=== PATIENT | male | born 1945 | race Caucasian/White ===

== ENCOUNTER → 2017-11-09 | Outpatient (CLI) | payer MEDICARE ==
[2017-11-09 18:11] LABS: Basophils % (A) 0 %; Eosinophils # (A) 0.2 k/uL (0-0.7); Eosinophils % (A) 5 %; HCT 43.9 % (39.0-53.0); HGB 14.4 gm/dL (13.0-17.5); Lymphocytes # (A) 1.1 k/uL (1.0-4.8); Lymphocytes % (A) 21 %; MCHC 32.8 g/dL (31.0-37.0); MCV 94.7 fL (80.0-100.0); Mean Platelet Volume 7.9; Monocytes # (A) 0.3 k/uL (0-1.0); Monocytes % (A) 6 %; Neutrophils # (A) 3.6 k/uL (1.3-7.7); Neutrophils % (A) 66 %; Platelet Count 274 k/uL (150-450); RBC 4.64 m/uL (4.30-5.90); RDW 13.2 % (11.5-15.5); WBC 5.4 k/uL (3.8-10.6)
[2017-11-09 18:15] LABS: ALT 25 U/L (21-72); AST 27 U/L (17-59); Albumin 4.2 g/dL (3.5-5.0); Alkaline Phosphatase 96 U/L (38-126); Anion Gap 12 mmol/L; Blood Urea Nitrogen 12 mg/dL (9-20); Carbon Dioxide 26 mmol/L (22-30); Chloride 104 mmol/L (98-107); Cholesterol 231 mg/dL (<200); Glucose 95 mg/dL (74-99); HDL Cholesterol 58 mg/dL (40-60); LDL Cholesterol,Calculated 155 mg/dL (0-99); Potassium 4.8 mmol/L (3.5-5.1); Sodium 142 mmol/L (137-145); Total Bilirubin 0.5 mg/dL (0.2-1.3); Total Protein 7.4 g/dL (6.3-8.2); Triglycerides 89 mg/dL (<150)
[2017-11-09 18:31] LABS: T4, Free (Free Thyroxine) 1.11 ng/dL (0.78-2.19)
[2017-11-09 18:45] LABS: Prostate Specific Antigen 1.09 ng/mL (0.00-4.00)
[2017-11-10 02:33] LABS: Hemoglobin A1C 5.6 % (4.0-6.0)
== END | disposition home or self-care (01) ==
LOC: LABWHC1 17:49
PROVIDERS: ATTEND Internal Medicine Geriatric Medicine
DX: Z00.00 Encounter for general adult medical examination without abnormal findings (principal); E78.00 Pure hypercholesterolemia, unspecified; E55.9 Vitamin D deficiency, unspecified; M15.9 Polyosteoarthritis, unspecified; R79.9 Abnormal finding of blood chemistry, unspecified; N40.0 Benign prostatic hyperplasia without lower urinary tract symptoms
CPT/HCPCS: 36415; 80053; 80061; 82306; 83036; 84153; 84439; 84443; 85025

== ENCOUNTER → 2018-11-14 | Outpatient (CLI) | payer MEDICARE ==
[2018-11-14 10:29] LABS: Basophils % (A) 1 %; Eosinophils # (A) 0.3 k/uL (0-0.7); Eosinophils % (A) 6 %; HGB 14.8 gm/dL (13.0-17.5); Lymphocytes # (A) 0.9 k/uL (1.0-4.8); Lymphocytes % (A) 21 %; MCH 30.9 pg (25.0-35.0); MCHC 32.9 g/dL (31.0-37.0); Mean Platelet Volume 8.3; Monocytes # (A) 0.3 k/uL (0-1.0); Monocytes % (A) 7 %; Neutrophils # (A) 2.9 k/uL (1.3-7.7); Neutrophils % (A) 64 %; Platelet Count 227 k/uL (150-450); RBC 4.79 m/uL (4.30-5.90); RDW 14.2 % (11.5-15.5); WBC 4.5 k/uL (3.8-10.6)
[2018-11-14 15:50] LABS: African American GFR (CKD) 98.5 (60.0-200.0); Albumin/Globulin Ratio 1.67 (1.60-3.17); Anion Gap 7.3 mmol/L (4.00-12.00); BUN/Creat Ratio 14.44 Ratio (12.00-20.00); Calcium 9.3 mg/dL (8.7-10.3); Carbon Dioxide 24.7 mmol/L (21.6-31.8); Globulin 2.4 g/dL (1.6-3.3); LDL Cholesterol,Calculated 124.8 mg/dL (0.0-131.0); Total Bilirubin 0.6 mg/dL (0.3-1.2); Total Protein 6.4 g/dL (6.2-8.2); VLDL Calculation 15.2 mg/dL (5.00-40.00)
== END | disposition home or self-care (01) ==
LOC: LABWHC1 11-07 09:13
PROVIDERS: ATTEND Internal Medicine Geriatric Medicine
DX: E78.2 Mixed hyperlipidemia (principal); N40.0 Benign prostatic hyperplasia without lower urinary tract symptoms; R79.9 Abnormal finding of blood chemistry, unspecified
CPT/HCPCS: 36415; 80053; 80061; 83036; 84153; 84439; 84443; 85025

== ENCOUNTER → 2021-09-08 | Outpatient (CLI) | payer MEDICARE ==
--- NOTE | 2021-09-08 15:03 | US ---
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 EXAM MEASUREMENTS: RIGHT: Peak Systolic Velocity (PSV) cm/sec ----- Right CCA: 105.7 ----- Right ICA: 105.7 ----- Right ECA: 99.6 ICA/CCA ratio: 1.0 RIGHT: End Diastole cm/sec ----- Right CCA: 22.8 ----- Right ICA: 38.3 ----- Right ECA: 13.9 LEFT: Peak Systolic Velocity (PSV) cm/sec ----- Left CCA: 94.1 ----- Left ICA: 123.4 ----- Left ECA: 90.2 ICA/CCA ratio: 1.3 LEFT: End Diastole cm/sec ----- Left CCA: 20.2 ----- Left ICA: 40.6 ----- Left ECA: 11.1 VERTEBRALS (direction of flow): Right Vertebral: Antegrade Left Vertebral: Antegrade Rhythm: Normal Very small amount of atherosclerotic changes. left ICA tortous IMPRESSION: No evidence for hemodynamically significant stenosis. Criteria for Assigning % of Stenosis / Diameter reduction (Estimation based on the indirect measurements of the internal carotid artery velocities (ICA PSV). 1. Normal (no stenosis)=ICA PSV < 125 cm/s: ratio < 2.0: ICA EDV<40 cm/s. 2. Less than 50% stenosis=ICA PSV < 125 cm/s: ratio < 2.0: ICA EDV<40 cm/s. 3. 50 to 69% stenosis=ICA PSV of 125 to 230 cm/s: ration 2.0 ? 4.0: ICA EDV 40-100 cm/s. 4. Greater than 70% stenosis to near occlusion= ICA PSV > 230 cm/s: ratio > 4.0: ICA EDV > 100 cm/s. 5. Near occlusion= ICA PSV velocities may be low or undetectable: variable ratio and ICA EDV. 6. Total occlusion=unable to detect flow.
--- NOTE | 2021-09-09 06:59 | CA ---
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 18 - 58 / 22 - 52 cm??? M-MODE Aortic Root Diameter MM 3.7 cm MV E Point Septal Separation 0.8 cm AV Cusp Separation MM 2.4 cm DOPPLER AV Peak Velocity 127.5 cm/s AV Peak Gradient 6.5 mmHg MV Area PHT 2.9 cm??? Mitral E Point Velocity 56.2 cm/s Mitral A Point Velocity 64.2 cm/s Mitral E to A Ratio 0.9 MV Deceleration Time 258.8 ms TR Peak Velocity 221.7 cm/s TR Peak Gradient 19.7 mmHg Right Ventricular Systolic Press 24.2 mmHg FINDINGS Left Ventricle Left ventricular ejection fraction is estimated at 60-65%. Normal Left ventricular size, wall thickness, systolic function with no obvious regional wall motion abnormalities. Right Ventricle Normal right ventricular size and function. Right ventricular systolic pressure within normal limits. Right Atrium Normal right atrial size. Left Atrium Normal left atrial size. Mitral Valve Structurally normal mitral valve. No mitral stenosis, regurgitation or prolapse. Aortic Valve Trileaflet aortic valve. No aortic valve stenosis or regurgitation. Tricuspid Valve Mild tricuspid regurgitation. Pulmonic Valve Trace pulmonic regurgitation. Pericardium Normal pericardium. Aorta Normal size aortic root and proximal ascending aorta. CONCLUSIONS Preserved LV size and systolic function without wall motion Previewed by: Dr. Chang Blanca MD (Electronically Signed) Final Date: 09 Sep 2021 06:58
== END | disposition home or self-care (01) ==
LOC: RADECHMAIN 13:36
PROVIDERS: ATTEND Internal Medicine Geriatric Medicine
DX: I65.23 Occlusion and stenosis of bilateral carotid arteries (principal); I34.0 Nonrheumatic mitral (valve) insufficiency
CPT/HCPCS: 93306; 93880

== ENCOUNTER → 2021-09-10 | Outpatient (CLI) | payer MEDICARE ==
--- NOTE | 2021-09-10 16:49 | MR ---
EXAMINATION TYPE: MR brain wo/w con DATE OF EXAM: 09/10/2021 COMPARISON: NONE HISTORY: AMNESIA. Memory loss. TECHNIQUE: Multiplanar, multisequence images of the brain and brainstem is performed without and with IV contras t, utilizing 9 mL intravenous Gadavist . FINDINGS: Diffusion weighted images demonstrate no evidence of a recent infarct or other diffusion ab normality. Mild to moderate ventricular and sulcal prominence greatest over the superior bilateral fr ontal lobes. No significant white matter changes are identified. Midline structures demonstrate normal morphology. The craniocervical junction appears within normal limits. Post contrast images demonstrate no abnormal enhancement. Moderate mucosal thickening involv ing ethmoid sinuses bilaterally. Mild mucosal thickening involving the inferior maxillary sinuses. Mi ld mucosal thickening involving right frontal sinus. The globes are intact bilaterally. IMPRESSION: 1. Mild to moderate diffuse cerebral atrophy greatest over the bilateral frontal lobes superiorly. 2. Chronic paranasal sinus disease noted as detailed above.
== END | disposition home or self-care (01) ==
LOC: RADMRIMAIN 12:27
PROVIDERS: ATTEND Internal Medicine Geriatric Medicine
DX: G31.9 Degenerative disease of nervous system, unspecified (principal); J34.89 Other specified disorders of nose and nasal sinuses
CPT/HCPCS: 70553; A9585

== ENCOUNTER → 2022-07-31 | Outpatient (CLI) | payer MEDICARE ==
[2022-07-31 15:25] LABS: Partial Thromboplastin Time 24.1 sec (22.0-30.0); Prothrombin Time 10.2 sec (9.0-12.0)
[2022-07-31 18:50] LABS: HCT 46.4 % (39.6-50.0); HGB 14.8 g/dL (13.0-17.0); MCH 31.4 pg (27.0-32.0); MCHC 31.9 g/dL (32.0-37.0); MCV 98.5 fL (80.0-97.0); Mean Platelet Volume 11.3 fL (9.5-12.2); NRBC Per 100 WBC 0 /100 WBCS (0.0-0.0); Platelet Count 249 X 10*3/uL (140-440); RBC 4.71 X 10*6/uL (4.40-5.60); RDW 12.9 % (11.5-14.5); WBC 6.21 X 10*3/uL (4.50-10.00)
[2022-07-31 19:24] LABS: African American GFR (CKD) 100.6 (60.0-200.0); Albumin 4.3 g/dL (3.8-4.9); Albumin/Globulin Ratio 1.48 (1.60-3.17); Anion Gap 9.6 mmol/L (10.00-18.00); Blood Urea Nitrogen 10.4 mg/dL (9.0-27.0); Calcium 9.7 mg/dL (8.7-10.3); Carbon Dioxide 28.4 mmol/L (20.0-27.5); Globulin 2.9 g/dL (1.6-3.3); Non-African American GFR(CKD) 86.8 (60.0-200.0); Potassium 4.3 mmol/L (3.5-5.5); Total Bilirubin 0.7 mg/dL (0.30-1.20); Total Protein 7.2 g/dL (6.2-8.2)
[2022-08-01 00:07] LABS: Appearance,Urine Clear (Clear); Bilirubin,Urine Negative (Negative); Blood,Urine Negative (Negative); Color,Urine Yellow (Yellow); Ketones,Urine Negative (Negative); Nitrite,Urine Negative (Negative); Specific Gravity,Urine 1.008 (1.001-1.030); Urobilinogen,Urine 0.2 (0.2,1.0)
== END | disposition home or self-care (01) ==
LOC: LABWHC1 12:44
PROVIDERS: ATTEND Orthopaedic Surgery
DX: Z01.812 Encounter for preprocedural laboratory examination (principal); M17.11 Unilateral primary osteoarthritis, right knee
CPT/HCPCS: 80053; 81003; 85027; 85610; 85730; 87070; 93005

== ENCOUNTER → 2022-08-06 | Outpatient (CLI) | payer MEDICARE ==
--- NOTE | 2022-08-06 14:04 | CT ---
EXAMINATION TYPE: CT right knee - [facility] Protocol DATE OF EXAM: 08/06/2022 COMPARISON: pain HISTORY: RT knee pain and arthritis CT DLP: 574 mGycm TECHNIQUE- CT of the right knee LOULOU protocol. COMPARISON- pain FINDINGS- There is significant joint space narrowing in the hips bilaterally along superior compartments. Small spurs are seen along the inferior margin of the left femoral head. No erosive changes. There is thickening of the bladder wall enlargement of prostate. Correlate for cystitis. Mucosal lesi on not excluded. There is a small suprapatellar bursal fluid collection. There is severe osteoarthritis of the knee wi th hypertrophic spurring and complete loss of joint space along the medial compartment. Arthropathy o f the patellofemoral joint also noted. A small popliteal fossa cyst not excluded. IMPRESSION- 1. Severe osteoarthritis of the right knee 2. Bilateral hip arthropathy.
== END | disposition home or self-care (01) ==
LOC: RADCTMAIN 10:40
PROVIDERS: ATTEND Orthopaedic Surgery
DX: M17.11 Unilateral primary osteoarthritis, right knee (principal); M21.161 Varus deformity, not elsewhere classified, right knee; M16.0 Bilateral primary osteoarthritis of hip

== ENCOUNTER 2022-08-21 05:33 | Day surgery (SDC) | payer MEDICARE ==
[2022-08-18 08:32] VITALS: BMI 23.1
[2022-08-21] MEDS ORDERED: LACTATED RINGERS 1,000 ML IV SCH (05:36)
[2022-08-21] MEDS ORDERED: ONDANSETRON 4 MG/2 ML VIAL IVP ONE (05:36)
[2022-08-21] MEDS ORDERED: HYDROmorphone 0.5 MG/0.5 ML SYRINGE IVP PRN ×4 (05:36→09:47)
[2022-08-21] MEDS ORDERED: DEXAMETHASONE SOD PHOSPHATE 4 MG/ML 1 ML VIAL IV ONE (05:36)
[2022-08-21] MEDS ORDERED: LIDOCAINE 1% (10MG/ML) FOR IV START INTRADERMA PRN (05:36)
[2022-08-21] MEDS ORDERED: MIDAZOLAM 2 MG/2 ML VIAL IV PRN (05:36)
[2022-08-21] MEDS ORDERED: DEXAMETHASONE SOD PHOSPHATE 10 MG/ML 1 ML VIAL IV PRN (06:00)
[2022-08-21] MEDS ORDERED: ACETAMINOPHEN TAB 500 MG TAB PO PRN (06:00)
[2022-08-21] MEDS ORDERED: TRANEXAMIC ACID IN NACL,ISO-OS 1,000 MG in SALINE 1 100ML.BAG IV PRN (06:00)
[2022-08-21] MEDS ORDERED: TRANEXAMIC ACID IN NACL,ISO-OS 1,000 MG in SALINE 1 100ML.BAG IVPB PRN (06:00)
[2022-08-21] MEDS ORDERED: oxyCODONE ER 10 MG TAB.ER.12H PO PRN (06:00)
[2022-08-21] MEDS ORDERED: KETOROLAC 15 MG/ML 1 ML VIAL IVP PRN (06:00)
[2022-08-21] MEDS ORDERED: ONDANSETRON 4 MG/2 ML VIAL IVP PRN ×2 (06:00→09:47)
[2022-08-21] MEDS ORDERED: DOCUSATE 100 MG CAP PO PRN (06:00)
[2022-08-21] MEDS ORDERED: FAMOTIDINE 20 MG/2 ML VIAL IVP PRN (06:00)
[2022-08-21] MEDS ORDERED: fentaNYL (PF) 50 MCG/ML 2 ML AMP IVP ONE (06:47)
[2022-08-21] MEDS ORDERED: MIDAZOLAM 2 MG/2 ML VIAL IVP ONE (06:47)
[2022-08-21] MEDS ORDERED: SODIUM CHLORIDE 0.9% (PF) 10 ML VIAL ONE (07:07)
[2022-08-21] MEDS ORDERED: TRANEXAMIC ACID IN NACL,ISO-OS 1,000 MG/100 ML BAG ONE (07:07)
[2022-08-21] MEDS ORDERED: ROCURONIUM 10 MG/ML (5 ML VIAL) IV ONE (07:07)
[2022-08-21] MEDS ORDERED: LIDOCAINE 2% INJ 20 MG/ML (2 ML VIAL) ONE (07:07)
[2022-08-21] MEDS ORDERED: NEOSTIGMINE 1 MG/ML 10 ML VIAL ONE (07:07)
[2022-08-21] MEDS ORDERED: ePHEDrine 50 MG/ML 1 ML VIAL ONE (07:07)
[2022-08-21] MEDS ORDERED: SUCCINYLCHOLINE CHLORIDE 200 MG/10 ML VIAL IV ONE (07:07)
[2022-08-21] MEDS ORDERED: ROPIVACAINE 5 MG/ML 30 ML VIAL ONE (07:07)
[2022-08-21] MEDS ORDERED: PROPOFOL 10 MG/ML 20 ML VIAL IV ONE (07:07)
[2022-08-21] MEDS ORDERED: HYDROmorphone (PF) 1 MG/ML ONE (07:07)
[2022-08-21] MEDS ORDERED: fentaNYL (PF) 50 MCG/ML 2 ML AMP ONE (07:07)
[2022-08-21] MEDS ORDERED: GLYCOPYRROLATE 0.2 MG/ML 2 ML VIAL ONE (07:07)
--- NOTE | 2022-08-21 07:07 | P.ANPRN ---
Procedure Note - Anesthesia - Nerve Block Performed Right Adductor Canal Single Time Out Performed: Yes (646) Date of Procedure: 08/21/22 Procedure Start Time: 06:47 Procedure Stop Time: 06:51 Location of Patient: PreOp Indication: Acute Post-Operative Pain, Requested by Surgeon Specifically requested for management of pain by DrAlisia: Westley Marquis Sedation Type: Sedate with meaningful contact maintained Preparation: Sterile Prep Position: Supine Catheter: None Needle Types: Pajunk Needle Gauge: 21 Ultrasound used to visualize needle placement: Yes Ultrasound used to observe medication spread: Yes Injectate: 0.5% Ropivacaine (see comment for volume) (15cc +10cc nacl pf) Blood Aspirated: No Pain Paresthesia on Injection Noted: No Resistance on Injection: Normal Image Stored and Saved: Yes Events: Uneventful and Well Tolerated
--- NOTE | 2022-08-21 07:08 | P.ANPRN ---
Procedure Note - Anesthesia - Nerve Block Performed Right iPack Single Time Out Performed: Yes (646) Date of Procedure: 08/21/22 Procedure Start Time: 06:52 Procedure Stop Time: 06:54 Location of Patient: PreOp Indication: Acute Post-Operative Pain, Requested by Surgeon Specifically requested for management of pain by DrAlisia: Westley Marquis Sedation Type: Sedate with meaningful contact maintained Preparation: Sterile Prep Position: Supine Needle Types: Pajunk Needle Gauge: 21 Ultrasound used to visualize needle placement: Yes Ultrasound used to observe medication spread: Yes Injectate: 0.5% Ropivacaine (see comment for volume) (15cc +10cc nacl pf) Blood Aspirated: No Pain Paresthesia on Injection Noted: No Resistance on Injection: Normal Image Stored and Saved: Yes Events: Uneventful and Well Tolerated
[2022-08-21] MEDS: ROPIVACAINE/EPI/CLONIDINE/KET 50 ML SYRINGE MISCELLANE PRN ×2 (07:42→08:49)
[2022-08-21] MEDS ORDERED: LACTATED RINGERS 1,000 ML IV ONE (08:50)
[2022-08-21] MEDS ORDERED: HYDROcodone/APAP 5-325MG 1 EACH TAB PO PRN (09:47)
[2022-08-21] MEDS ORDERED: NALOXONE 0.4 MG/ML 1 ML VIAL IV PRN (09:47)
[2022-08-21] MEDS ORDERED: hydrOXYzine pamoate 25 MG CAP PO PRN (09:47)
--- NOTE | 2022-08-21 09:49 | P.OP ---
Date of Procedure: 08/21/22 Preoperative Diagnosis: 1. Severe right knee osteoarthritis 2. Mild dementia Postoperative Diagnosis: 1. Severe right knee osteoarthritis 2. Mild dementia Procedure(s) Performed: Right total knee arthroplasty Implants: 1. [place] [employer] CR Femur Size #7 2. [employer] [place] Tibial Base Size #7 3. [place] [employer] CS poly Size #9 4. [employer] all poly patella, Size #35 Anesthesia: RAN, regional Surgeon: Westley Marquis Weigher Operator #1: Carlene Hansen Estimated Blood Loss (ml): 100 IV fluids (ml): 1,200 Pathology: none sent Condition: stable Disposition: PACU Indications for Procedure: I met with the patient preoperatively in the office setting and discussed treatment of their symptomatic knee arthritis. They failed a long course of nonsurgical treatment and elected to proceed with an elective total knee replacement. I discussed the potential risks and complications at length and gave them ample time to ask questions. Risks discussed included: risks from anesthesia, superficial site surgical infection, acute and/or chronic periprosthetic joint infection, delayed wound healing, drainage, wound necrosis, instability, stiffness, stiffness requiring manipulation and/or revision surgery, damage to local blood vessels or nerves, aseptic loosening of the implants, extensor mechanism issues including disruption, patellar maltracking, avascular necrosis etc., continued or worsened knee pain, generalized dissatisfaction with surgical outcome, need for revision surgery, an inability to regain preinjury level of function, DVT, PE, other medical complications, and possibly loss of life or limb. The patient voiced their understanding that while these are the most common complications other less common complications are possible. They provided both their verbal and written consent to go forward with surgery. Operative Findings: Severe tricompartmental knee osteoarthritis Description of Procedure: The patient was identified in preoperative holding and the correct operative extremity was verified and marked with a marker. I reviewed the consent form with the patient at length. All of their questions were answered. The patient was given a block by anesthesia. They were then brought back to the operating room. They were transferred onto the operating room table where a general anesthetic, preoperative antibiotics, and tranexamic acid were administered by anesthesia. A tourniquet was applied to the proximal aspect of the operative extremity. The contralateral extremity was padded under the heel and secured to the operating room table with a nonsterile blue towel and tape. The ipsilateral arm was carefully draped across the patient's chest and secured with a pillow and foam. A post was applied over the lateral aspect of the ipsilateral thigh and a bolster was placed under the ipsilateral foot. I verified that the operative extremity was stable and the knee was flexed to 90. The operative extremity was then placed in a leg engel, nonsterile drapes were applied, and the extremity was prepped and draped sterilely in the standard sterile fashion. Prior to starting surgery timeout was performed identifying the correct patient, operative extremity, and procedure. The leg was then elevated, exsanguinated with an Esmarch bandage, and the tourniquet was inflated. An anterior midline incision was made sharply with a scalpel. Once I had dissected deep to the superficial fascial layer medial and lateral flaps were elevated. A medial parapatellar arthrotomy was created. Upon opening the knee joint there were diffuse arthritic changes in all 3 compartments. The anterior horn of the medial meniscus were sharply released and a medial release was performed around the posterior medial corner of the knee to facilitate retractor placement. The fat pad was excised with electrocautery. The patella was found to be severely arthritic and a provisional cut was made with a sagittal saw to facilitate mobilization of the extensor mechanism during the procedure. Remnants of the ACL and PCL were then excised from the notch. 4 mm pins were then placed within the incision in the medial distal femur and proximal tibia. Arrays were applied to the pins and I verified they were completely tightened. The knee was then registered with the REQQI robot and manipulations in implant position were made to balance the knee and opitmize implant position. Using the Tj robotic saw all cuts were made in accordance with our plan. After all bony fragments had been removed the cuts were verified with the planar probe. The tibia was then subluxed forward and sized. The knee was brought into flexion and a lamina information architect was placed to allow removal of the meniscal remnants both medially and laterally as well as posterior osteophytes. Local anesthetic was then infiltrated around the joint capsule. Trial implants were then placed within the knee. Range of motion and collateral ligament tension was then evaluated. Adjustments in implant size and position were then made accordingly. Once the knee was felt to be appropriately balanced the Tj pins were removed. The patella was then recut, sized, and punched. A trial patellar button was then placed. With the trial components in place, the patella tracked midline. The femur was then drilled and the trial component removed. The trial tibial component was then appropriately rotated, pinned, and prepared for the keel. All trial components were then removed from the knee. The knee was thoroughly irrigated with pulsatile lavage. Cement was prepared via vacuum mixing in a bowl on the back table. I then hand pressurized cement into the femur and tibia and placed the implants beginning with the tibial base tray and poly liner, femoral component, and finally the patellar button. All extruded cement was removed including from the pin sites. Once the cement had hardened the knee was evaluated one final time with the final polyethylene liner in place. The knee had full extension and flexion and felt stable to varus and valgus stress throughout the arc of motion. The tourniquet was released and with the tourniquet down the patella tracked midline. All bleeders were controlled with electrocautery. The knee was then soaked for 3 minutes with a dilute Betadine soak. The knee was thoroughly irrigated using 3 L of sterile saline and pulsatile lavage. A deep drain was placed. The extensor mechanism was then reapproximated using pop off Vicryl sutures followed by a running barbed suture. The knee was then closed in layers with a 0 strata fix for the deep fascial layer, 2-0 strata fix for the superficial subcutaneous layer and Monocryl and Steri-Strips for the skin. A sterile dressing and drain sponge were applied. I verified that all instrument, sponge, and sharp counts were correct. The patient was then transferred off the operating room table, extubated, and brought to recovery having tolerated the procedure well. Carlene Hansen PA-C was required as a skilled ortho assistant due to the complexity of the procedure for patient positioning, draping, retraction, placement of hardware, and closure of wound. PLAN: The patient can weight-bear as tolerated on the operative extremity. DVT prophylaxis with aspirin 81 mg twice a day based on preoperative risk stratification. Follow-up in the office in 2 weeks for wound check and x-rays of the knee including an AP and lateral.
--- NOTE | 2022-08-21 10:41 | XR ---
EXAMINATION TYPE: XR knee limited RT DATE OF EXAM: 08/21/2022 10:30 AM INDICATION: Patient age:Male; 77 years old; Reason for study: Evaluation for Postop abnormality and alignment; COMPARISON: None TECHNIQUE: The Right knee(s) was examined in Frontal, lateral and oblique projections. FINDINGS: Status post total knee arthroplasty changes with hardware in appropriate alignment and in tact. No evidence of fracture. Subcutaneous lucencies and lucencies within the joint consistent with surgical changes. IMPRESSION: Status post total knee arthroplasty changes with hardware intact and appropriate alignment. No fractu res identified.
[2022-08-21] MEDS: LACTATED RINGERS 1,000 ML IV SCH ×2 (13:07→21:04)
[2022-08-21] MEDS: HYDROcodone/APAP 5-325MG 1 EACH TAB PO PRN ×2 (17:04→23:52)
[2022-08-21] MEDS ORDERED: SENNOSIDES-DOCUSATE SODIUM 1 EACH TAB PO SCH (21:00)
[2022-08-21] MEDS: ASPIRIN 81 MG PO SCH (21:01)
--- NOTE | 2022-08-21 23:01 | P.CONS ---
History of Present Illness - Reason for Consult Consult date: 08/21/22 Medical management - Chief Complaint Right total knee arthroplasty - History of Present Illness Patient is a 77-year-old male with a known history of hearing disorder/deafness, osteoarthritis and lifelong non-smoker was admitted to the hospital for elective right total knee arthroplasty. Patient tolerated the procedure well. Currently resting in the bed. Denies any complaints of pain at the surgical site. No complaints of chest pain or shortness of breath. No nausea vomiting abdominal pain or diarrhea. Postoperatively blood pressure was 100/51. Patient otherwise denied any complaints of dizziness or lightheadedness. No cough or sputum production. Patient has been afebrile. Laboratory data is not available at this time. Review of Systems Constitutional: Patient denies any fever or chills . no Generalized weakness. Abdomen: Patient denied any nausea or vomiting or abd. pain Cardiovascular: Patient denies any chest pain or short of breath no palpit ations. Respiratory: patient denied any cough . no sputum production. No shortness of breath Neurologic: Patient denied any numbness or tingling headache. Musculoskeletal: Patient denies any complaints of joint swelling or deformity. Complete review of systems could not be obtained from the patient. Past Medical History Past Medical History: Hearing Disorder / Deafness, Memory Impairment, Osteoarthritis (OA) Additional Past Medical History / Comment(s): "Mild cognitive impairment, some trouble hearing at times." History of Any Multi-Drug Resistant Organisms: None Reported Past Surgical History: No Surgical Hx Reported Additional Past Surgical History / Comment(s): Cataract surgery, colonoscopy, right total knee arthroplasty. Past Anesthesia/Blood Transfusion Reactions: No Reported Reaction Past Psychological History: No Psychological Hx Reported Smoking Status: Never smoker Past Alcohol Use History: None Reported Past Drug Use History: None Reported - Past Family History Father Additional Family Medical History / Comment(s): Abdominal Aortic Aneurysym. Medications and Allergies Home Medications Medication Instructions Recorded Confirmed Type Barley Life 1 dose PO DAILY 08/18/22 08/18/22 History Ginkgo Biloba [place] Extract [Ginkgo] 120 mg PO BID 08/18/22 08/18/22 History Mupirocin 2% Oint [Bactroban 2% 1 applic NASAL TID 08/18/22 08/18/22 History Oint] Reassure Sp 1 dose PO DAILY 08/18/22 08/18/22 History Enrique Beets/Just Carrots 1 dose PO DAILY 08/18/22 08/18/22 History Aspirin 81 mg PO BID 30 Days #60 tab 08/21/22 Rx Diclofenac Sodium [Voltaren] 75 mg PO BID 30 Days #60 tab 08/21/22 Rx Docusate [Colace] 100 mg PO BID #60 capsule 08/21/22 Rx HYDROcodone/APAP 5-325MG [[place] 1 - 2 tab PO Q6HR PRN 7 Days #32 08/21/22 Rx 5-325] tab Omeprazole 40 mg PO DAILY 30 Days #30 cap 08/21/22 Rx Allergies Allergy/AdvReac Type Severity Reaction Status Date / Time No Known Allergies Allergy Verified 08/21/22 05:55 Physical Exam Vitals: Vital Signs Temp Pulse Pulse Pulse Resp BP Pulse Ox 08/21/22 20:00 98.0 F 83 17 151/72 98 08/21/22 14:31 97.3 F L 66 14 117/74 97 08/21/22 12:27 87 16 123/65 98 08/21/22 11:30 81 16 124/64 96 08/21/22 11:15 61 16 100/51 96 08/21/22 11:00 60 16 104/50 96 08/21/22 10:45 66 16 100/51 96 08/21/22 10:30 78 16 104/50 96 08/21/22 10:15 79 16 110/55 96 08/21/22 10:00 67 16 125/64 98 08/21/22 09:45 67 16 112/57 98 08/21/22 09:38 97.7 F 86 12 127/70 98 08/21/22 06:51 61 16 119/66 95 08/21/22 06:46 59 L 16 148/80 99 08/21/22 06:12 97.5 F L 69 18 133/76 97 Intake and Output 08/21/22 08/21/22 08/21/22 06:59 14:59 22:59 Intake Total 300 1650 Output Total 620 2000 Balance 300 1030 -2000 Intake: IV 300 1650 Output: Drainage 120 Right Knee 120 Urine 400 2000 Estimated Blood Loss 100 Other: Weight 83.2 kg 83.2 kg PHYSICAL EXAMINATION: Patient is lying in the bed comfortably, no acute distress, awake alert and orie nted.. HEENT: Normocephalic. Neck is supple. Pupils reactive. Nostrils clear. Oral cavity is moist. Neck reveals no JVD, carotid bruits, or thyromegaly. CHEST EXAMINATION: Trachea is central. Symmetrical expansion. Lung galvez clear to auscultation and percussion. CARDIAC: Normal S1, S2 with no gallops. No murmurs ABDOMEN: Soft. Bowel sounds present. Nontender. No organomegaly. No abdominal bruits. Extremities: reveal no edema. No clubbing or cyanosis Neurologically awake, alert, oriented x 1-2 with well-coordinated movements. Cognitive impairment. No focal deficits noted Skin: No rash or skin lesions. Psychiatric: Coperative. Nonsuicidal, Musculoskeletal: No joint swelling or deformity. Normal range of motion. Right knee surgical site intact with JOSEFA drain in place. Assessment and Plan Assessment: Status post right total knee arthroplasty postoperative day 0 Mild-moderate cognitive impairment. Osteoarthritis Hearing disorder/deafness DVT prophylaxis as per primary team Plan: Patient will be continued on current pain management, bowel regimen and encourage incentive spirometry. Follow-up CBC and BMP tomorrow. PT OT. GI and DVT prophylaxis. We will continue to follow further recommendations based on treatment course. Thank you for your consult.
[2022-08-22] MEDS: HYDROcodone/APAP 5-325MG 1 EACH TAB PO PRN ×2 (05:44→11:46)
[2022-08-22] MEDS: LACTATED RINGERS 1,000 ML IV SCH (06:46)
[2022-08-22] MEDS: ASPIRIN 81 MG PO SCH (07:45)
[2022-08-22 08:25] VITALS: PULSE 63; RESP 16; TEMP 98.3
--- NOTE | 2022-08-22 10:37 | P.DS ---
Providers Date of admission: 08/21/2022 Expected date of discharge: 08/22/22 Attending physician: Westley Marquis Consults: 08/21/22 09:52 Consult Physician Routine Consulting Provider: Doyle Hernandez Consult Reason/Comments: medical management Do you want consulting provider notified?: Yes Primary care physician: Mark Grey - Discharge Diagnosis(es) (1) Osteoarthritis of right knee Current Visit: Yes Status: Acute (2) Right knee pain Current Visit: Yes Status: Acute (3) S/P total knee arthroplasty Current Visit: Yes Status: Acute Hospital Course: This is a pleasant 77-year-old male who presented with severe right knee osteoarthritis who failed outpatient conservative therapy. He was admitted for a right total knee arthroplasty. The patient tolerated the procedure well and did well postoperatively. His pain has been well-controlled at his right knee. He has been able to ambulate with the assistance of a walker. He did have some hypotension this morning after ambulation. He did have low blood pressure reading. Since that time, his blood pressure has normalized and he feels good. He is not feeling lightheaded or dizziness. He states he would like to be discharged home today. We did discuss he is cleared for discharge from an orthopedic standpoint. We did discuss he would need clearance by medicine prior to discharge home today. Condition on day of discharge would be stable if cleared by medicine. Patient will be discharged home. Patient was cleared preoperatively for surgery by Dr. Dr. Grey. Patient currently denies any nausea, vomiting, fever, or chills. Patient is eating and voiding freely without difficulty. Patient may shower Optifoam dressing intact. Optifoam dressing must stay intact to his scheduled follow-up appointment. Drain in the right knee has been discontinued. Dressing with Tegaderm has been placed over the drain site. This dressing may be changed as needed. He may continue to weight-bear on the right lower extremity as tolerated with the assistance of a walker. MAPS was previously reviewed. An "Opiod Start Talking" Form has been signed. Prescription has been sent for hydrocodone 5 mg/325 mg, 1-2 tabs every 6 hours as needed for acute pain, dispensed #32. Patient should continue with aspirin 81 mg twice a day over the next 4 weeks for anticoagulation postoperatively. Patient's other medical diagnoses include mild to moderate cognitive impairment Physical Exam on day of discharge: Status post surgical day number 1 Patient is awake, alert, and oriented 3 Vital signs stable Good chest excursion with deep inspiration and expiration No signs or symptoms of DVT; no calf pain Dressing over the right anterior knee is clean, dry, and intact; no erythema, purulence, or signs of infection Patient has full foot and ankle motion without difficulty bilateral lower extremities Dorsiflexion, plantar flexion, and extensor hallucis longus positive sustained bilaterally Neurovascular status left lower extremity intact Capillary refill lower extremity is bilaterally less than 2 seconds Hemovac drain is removed at the right knee Dressing with Tegaderm is applied over the drain removal site Procedures: Right total knee arthroplasty Patient Condition at Discharge: Stable Plan - Discharge Summary Discharge Rx Participant: No New Discharge Prescriptions: New Aspirin 81 mg PO BID 30 Days #60 tab Docusate [Colace] 100 mg PO BID #60 capsule HYDROcodone/APAP 5-325MG [[place] 5-325] 1 - 2 tab PO Q6HR PRN 7 Days #32 tab PRN Reason: Pain Omeprazole 40 mg PO DAILY 30 Days #30 cap Diclofenac Sodium [Voltaren] 75 mg PO BID 30 Days #60 tab No Action Barley Life 1 dose PO DAILY Mupirocin 2% Oint [Bactroban 2% Oint] 1 applic NASAL TID Enrique Beets/Just Carrots 1 dose PO DAILY Reassure Sp 1 dose PO DAILY Ginkgo Biloba Bovill Extract [Ginkgo] 120 mg PO BID Discharge Medication List Barley Life 1 dose PO DAILY 08/18/22 [History] Ginkgo Biloba Bovill Extract [Ginkgo] 120 mg PO BID 08/18/22 [History] Mupirocin 2% Oint [Bactroban 2% Oint] 1 applic NASAL TID 08/18/22 [History] Reassure Sp 1 dose PO DAILY 08/18/22 [History] Enrique Beets/Just Carrots 1 dose PO DAILY 08/18/22 [History] Aspirin 81 mg PO BID 30 Days #60 tab 08/21/22 [Rx] Diclofenac Sodium [Voltaren] 75 mg PO BID 30 Days #60 tab 08/21/22 [Rx] Docusate [Colace] 100 mg PO BID #60 capsule 08/21/22 [Rx] HYDROcodone/APAP 5-325MG [[place] 5-325] 1 - 2 tab PO Q6HR PRN 7 Days #32 tab 08/21/22 [Rx] Omeprazole 40 mg PO DAILY 30 Days #30 cap 08/21/22 [Rx] Follow up Appointment(s)/Referral(s): Westley Marquis MD [Medical Doctor] - 2 Weeks Activity/Diet/Wound Care/Special Instructions: 1. Weight bear to tolerance on the right lower extremity with a walker. 2. Keep operative dressing over the right anterior knee intact until follow-up in the office. Call the office if dressing becomes saturated or falls off. May shower over dressing. 3. Patient may continue with dressing changes as needed over the surgical drain removal site 4. Take pain medications as prescribed. Take aspirin 81mg twice a day x 4 weeks for blood clot prevention. 5. Follow-up in the office in two weeks at [facility]. 6. Call the office with any questions or concerns, Discharge Disposition: HOME WITH HOME HEALTH SERVICES
[2022-08-22 13:22] LABS: Basophils # (A) 0.03 X 10*3/uL (0.00-0.10); Basophils % (A) 0.4 %; Eosinophils # (A) 0.02 X 10*3/uL (0.04-0.35); Eosinophils % (A) 0.3 %; HCT 39.7 % (39.6-50.0); HGB 13.1 g/dL (13.0-17.0); Immature Grans, Automated 0.4 %; Lymphocytes # (A) 0.52 X 10*3/uL (0.90-5.00); Lymphocytes % (A) 6.7 %; MCH 32.3 pg (27.0-32.0); MCV 97.8 fL (80.0-97.0); Mean Platelet Volume 11.5 fL (9.5-12.2); Monocytes # (A) 0.94 X 10*3/uL (0.20-1.00); Monocytes % (A) 12.1 %; NRBC Per 100 WBC 0.4 /100 WBCS (0.0-0.0); Neutrophils # (A) 6.22 X 10*3/uL (1.80-7.70); Neutrophils % (A) 80.1 %; Platelet Count 196 X 10*3/uL (140-440); RBC 4.06 X 10*6/uL (4.40-5.60); RDW 12.8 % (11.5-14.5); WBC 7.76 X 10*3/uL (4.50-10.00)
[2022-08-22 13:38] LABS: African American GFR (CKD) 100.6 (60.0-200.0); Anion Gap 7.9 mmol/L (10.00-18.00); BUN/Creat Ratio 11.63 Ratio (12.00-20.00); Blood Urea Nitrogen 9.3 mg/dL (9.0-27.0); Calcium 9.2 mg/dL (8.7-10.3); Carbon Dioxide 26.1 mmol/L (20.0-27.5); Non-African American GFR(CKD) 86.8 (60.0-200.0); Potassium 4.1 mmol/L (3.5-5.5)
[2022-08-22 15:00] VITALS: BP 121/69
== END 2022-08-22 15:04 | disposition home health service (06) ==
LOC: OR 05:33 → 4SSUR 09:38 → OR 08-22 15:04
PROVIDERS: ATTEND Orthopaedic Surgery
DX: M17.11 Unilateral primary osteoarthritis, right knee (principal); F03.A0 Unspecified dementia, mild, without behavioral disturbance, psychotic disturbance, mood disturbance, and anxiety; G89.18 Other acute postprocedural pain; Z83.3 Family history of diabetes mellitus; Z79.899 Other long term (current) drug therapy
CPT/HCPCS: 97162; 64447; 64999; 76942; 80048; 85025; 88300; 73560; 27447; C1776; C1713; J2250; J0330; J1100; J2710; J0690; J2405; J3010; J1170; J2795; J1885; J2704; J2001

== ENCOUNTER → 2023-06-01 | Outpatient (CLI) | payer MEDICARE ==
[2023-06-01 16:51] LABS: Basophils # (A) 0.03 X 10*3/uL (0.00-0.10); Basophils % (A) 0.6 %; Eosinophils # (A) 0.33 X 10*3/uL (0.04-0.35); Eosinophils % (A) 7.1 %; HCT 44.7 % (39.6-50.0); HGB 14.4 g/dL (13.0-17.0); Lymphocytes # (A) 1.23 X 10*3/uL (0.90-5.00); Lymphocytes % (A) 26.5 %; MCH 31.3 pg (27.0-32.0); MCHC 32.2 g/dL (32.0-37.0); MCV 97.2 FL (80.0-97.0); Mean Platelet Volume 11.6 FL (9.5-12.2); Monocytes # (A) 0.49 X 10*3/uL (0.20-1.00); Monocytes % (A) 10.5 %; NRBC Per 100 WBC 0 X 10*3/uL (0.00-0.01); Neutrophils # (A) 2.56 X 10*3/uL (1.80-7.70); Neutrophils % (A) 55.1 %; Platelet Count 247 X 10*3/uL (140-440); RDW 13.2 % (11.5-14.5); WBC 4.65 X 10*3/uL (4.50-10.00)
[2023-06-01 17:26] LABS: ALT 12 U/L (10-49); AST 18 U/L (14-35); Albumin 4.1 g/dL (3.8-4.9); Albumin/Globulin Ratio 1.46 Ratio (1.60-3.17); Alkaline Phosphatase 92 U/L (41-126); BUN/Creat Ratio 13.36 Ratio (12.00-20.00); Blood Urea Nitrogen 14.7 mg/dL (9.0-27.0); Chloride 106 mmol/L (96-109); Chol/HDL Ratio 3.68 Ratio; Globulin 2.8 g/dL (1.6-3.3); Glucose 97 mg/dL (70-110); LDL Cholesterol,Calculated 130.1 mg/dL (0.0-131.0); Potassium 4.7 mmol/L (3.5-5.5); Prostate Specific Antigen 1.32 ng/mL (0.000-6.500); Sodium 142 mmol/L (135-145); Total Bilirubin 0.5 mg/dL (0.3-1.2); Total Protein 6.9 g/dL (6.2-8.2); VLDL Calculation 14.12 mg/dL (5.00-40.00)
== END | disposition home or self-care (01) ==
LOC: LABWHC1 08:34
PROVIDERS: ATTEND Internal Medicine Geriatric Medicine
DX: Z00.00 Encounter for general adult medical examination without abnormal findings (principal); E78.2 Mixed hyperlipidemia; N40.0 Benign prostatic hyperplasia without lower urinary tract symptoms
CPT/HCPCS: 36415; 80053; 80061; 84153; 84443; 85025

== ENCOUNTER → 2024-01-20 | Outpatient (CLI) | payer MEDICARE ==
[2024-01-20 15:25] LABS: Basophils # (A) 0.04 X 10*3/uL (0.00-0.10); Basophils % (A) 0.8 %; Eosinophils % (A) 3.8 %; HGB 14.4 g/dL (13.0-17.0); Lymphocytes # (A) 1.03 X 10*3/uL (0.90-5.00); Lymphocytes % (A) 19.7 %; MCH 31.6 pg (27.0-32.0); MCHC 33.5 g/dL (32.0-37.0); MCV 94.5 FL (80.0-97.0); Mean Platelet Volume 11.2 FL (9.5-12.2); Monocytes # (A) 0.43 X 10*3/uL (0.20-1.00); Monocytes % (A) 8.2 %; NRBC Per 100 WBC 0 X 10*3/uL (0.00-0.01); Neutrophils # (A) 3.52 X 10*3/uL (1.80-7.70); Neutrophils % (A) 67.3 %; Platelet Count 235 X 10*3/uL (140-440); RBC 4.55 X 10*6/uL (4.40-5.60); RDW 13.4 % (11.5-14.5); WBC 5.23 X 10*3/uL (4.50-10.00)
== END | disposition home or self-care (01) ==
LOC: LABPAT 08:00
PROVIDERS: ATTEND Surgery
DX: Z01.818 Encounter for other preprocedural examination (principal); K40.90 Unilateral inguinal hernia, without obstruction or gangrene, not specified as recurrent; Z87.898 Personal history of other specified conditions
CPT/HCPCS: 36415; 85025; 86850; 86900; 86901; 93005

== ENCOUNTER 2024-01-24 05:44 | Day surgery (SDC) | payer MEDICARE ==
[2024-01-19 10:31] VITALS: BMI 23.1
[2024-01-24] MEDS ORDERED: HYDROmorphone 0.5 MG/0.5 ML SYRINGE IVP PRN (06:17)
[2024-01-24] MEDS: ACETAMINOPHEN TAB 500 MG TAB PO PRN (06:41)
[2024-01-24] MEDS: ONDANSETRON 4 MG/2 ML VIAL IVP ONE (06:42)
[2024-01-24] MEDS: LACTATED RINGERS 1,000 ML IV SCH (06:43)
[2024-01-24] MEDS: DEXAMETHASONE SOD PHOSPHATE 4 MG/ML 1 ML VIAL IVP STA (06:44)
[2024-01-24] MEDS: IV FLUID CONTINUATION 1,000 ML IV ONE (06:49)
[2024-01-24] MEDS: HEPARIN SODIUM,PORCINE 5,000 UNIT/ML 1 ML VIAL SQ PRN (07:01)
[2024-01-24] MEDS ORDERED: GLYCOPYRROLATE 0.2 MG/ML 2 ML VIAL ONE (07:29)
[2024-01-24] MEDS ORDERED: ONDANSETRON 4 MG/2 ML VIAL ONE (07:29)
[2024-01-24] MEDS ORDERED: fentaNYL (PF) 50 MCG/ML 2 ML AMP ONE (07:29)
[2024-01-24] MEDS ORDERED: PROPOFOL 10 MG/ML 20 ML VIAL IV ONE (07:29)
[2024-01-24] MEDS ORDERED: ROCURONIUM 10 MG/ML (5 ML VIAL) IV ONE (07:29)
[2024-01-24] MEDS ORDERED: ePHEDrine 50 MG/ML 1 ML VIAL ONE (07:29)
[2024-01-24] MEDS ORDERED: HYDROmorphone (PF) 1 MG/ML ONE (07:29)
[2024-01-24] MEDS ORDERED: NEOSTIGMINE 1 MG/ML 10 ML VIAL ONE (07:29)
[2024-01-24] MEDS ORDERED: SUCCINYLCHOLINE CHLORIDE 200 MG/10 ML VIAL IV ONE (07:29)
[2024-01-24] MEDS ORDERED: MIDAZOLAM 2 MG/2 ML VIAL ONE (07:29)
[2024-01-24] MEDS ORDERED: LIDOCAINE 1% INJ 10MG/ML (20 ML MDV) ONE (07:29)
[2024-01-24] MEDS: TAMSULOSIN 0.4 MG CAP.ER.24H PO STA ×2 (07:34→11:32)
--- NOTE | 2024-01-24 07:54 | P.GSHP ---
History of Present Illness H&P Date: 01/24/24 Chief Complaint: Bilateral inguinal hernia 78-year-old male here for bilateral inguinal hernia repair. Patient says these hernias have been enlarging since 2005. Mild soreness at times. Feels gas in the left-sided hernia often. Past Medical History Past Medical History: Hearing Disorder / Deafness, Memory Impairment Additional Past Medical History / Comment(s): Mild memory Impairment, slight [place] History of Any Multi-Drug Resistant Organisms: None Reported Past Surgical History: Joint Replacement Additional Past Surgical History / Comment(s): Cataract surgery, colonoscopy, right total knee arthroplasty. Past Anesthesia/Blood Transfusion Reactions: No Reported Reaction Additional Past Anesthesia/Blood Transfusion Reaction / Comment(s): No hx of blood transfusion. Smoking Status: Never smoker - Past Family History Father Family Medical History: No Reported History Medications and Allergies Home Medications Medication Instructions Recorded Confirmed Type Barley Life 1 dose PO QAM 08/18/22 01/19/24 History Donepezil HCl [Aricept] 10 mg PO HS 01/19/24 01/19/24 History Allergies Allergy/AdvReac Type Severity Reaction Status Date / Time No Known Allergies Allergy Verified 01/24/24 06:09 Surgical - Exam Vital Signs Temp Pulse Resp BP Pulse Ox 97 F L 63 16 126/74 96 01/24/24 06:18 01/24/24 06:18 01/24/24 06:18 01/24/24 06:18 01/24/24 06:18 Physical exam: General: Well-developed, well-nourished HEENT: Normocephalic, sclerae nonicteric Abdomen: Nontender, nondistended, moderate to large bilateral inguinal hernias Extremities: No edema Neuro: Alert and oriented Assessment and Plan (1) Inguinal hernia Narrative/Plan: 78-year-old male with bilateral inguinal hernia. Will proceed with laparoscopic da Tricia assisted repair bilateral inguinal hernia with mesh, possible open. Risks of bleeding, infection, recurrence, bladder and bowel injury, numbness, nerve injury, conversion to an open procedure were discussed with the patient. The patient understands and wishes to proceed. Current Visit: Yes Status: Acute Code(s): K40.90 - UNIL INGUINAL HERNIA, W/O OBST OR GANGR, NOT SPCF RECUR SNOMED Code(s): 842252328
[2024-01-24] MEDS: BUPIVACAINE (PF) 0.25% 30 ML VIAL SQ ONE (08:01)
[2024-01-24] MEDS: LACTATED RINGERS 1,000 ML IV ONE (09:39)
--- NOTE | 2024-01-24 10:27 | P.OP ---
Date of Procedure: 01/24/24 Procedure(s) Performed: PREOPERATIVE DIAGNOSIS: Bilateral inguinal hernia POSTOPERATIVE DIAGNOSIS: Same PROCEDURE: Laparoscopic da Tricia assisted repair bilateral inguinal hernia SURGEON: Dr. Mccullough ANESTHESIA: General OPERATIVE PROCEDURE DETAILS: Patient was placed in the operating table in the supine position. The patient was placed under general anesthesia. The abdomen was prepped and draped in usual sterile fashion. A small curvilinear supraumbilical incision was made. The fascia was retracted anteriorly with Michael forceps. The Veress needle was inserted. The saline drop test was normal. Insufflation took place to 15 mmHg. An 8 mm trocar was placed into the peritoneal cavity. 2 additional 8 mm trochars were placed in the right upper quadrant and left upper quadrant under visualization. The robotic arms were then brought in and docked into place. The fenestrated bipolar was used in the left arm and the laparoscopic lisa was utilized in the right arm. A 30 8 mm scope was used in the up position. The peritoneal cavity was inspected. The patient had a moderate sized right indirect inguinal hernia and a large sized left indirect inguinal hernia. The left-sided hernia contained loops of sigmoid colon. These were lysed and reduced back into the peritoneal cavity. A inci justen was created on the peritoneum across the lower abdomen superior to the bladder. The preperitoneal dissection took place bilaterally at that time. The indirect hernia on the right-hand side was reduced using blunt dissection. Farzad's ligament and the pubic symphysis were well-visualized. Dissection on the left-hand side of the indirect hernia sac then took place without difficulty as well. A lipoma of the cord was present on the right side. This was excised. A small area of bleeding was controlled using vessel sealer along the base of the lipoma. Once we had full dissection in both sacs fully reduced 2 separate 15 x 10 mm Progrip mesh were placed within the abdomen crossing one another in the midline. These were then sutured to the Farzad's ligament across the pubic symphysis to the opposite side using a running 30 absorbable V lock suture. The same stitch was then brought to the midline and the mesh was sutured to the abdominal wall in the midline superiorly. This covered all hernia spaces nicely. The peritoneal defect was then closed bilaterally using a absorbable 2- 0 VLok suture. The hernia sacs were incorporated into the peritoneal closure to help prevent future recurrence. The pneumoperitoneum was then evacuated. The skin of all 3 sites was closed using a 4-0 Monocryl stitch. Skin glue was then applied. TYPE OF MESH USED: Progrip 15 x 10 LOCATION OF MESH: Preperitoneal/sub-lay FIXATION: Absorbable 30V lock PREOPERATIVE DISCUSSION ON SMOKING CESSASTION: Yes PREOPERATIVE DISCUSSION ON MORBID OBESITY: Yes PREOPERATIVE DISCUSSION ON APPROPRIATE USE OF NARCOTIC USE: Yes PREOPERATIVE EDUCATION: Multi Modal, Smoking Cessation and Weight Loss with BMI over 35. DISPOSITION: Stable to recovery room
[2024-01-24 10:31] VITALS: TEMP 97.3
[2024-01-24 11:00] VITALS: RESP 16
[2024-01-24 11:23] VITALS: BP 124/73; PULSE 77
[2024-01-24] MEDS ORDERED: ACETAMINOPHEN TAB 325 MG TAB PO SCH (12:00)
[2024-01-24] MEDS ORDERED: IBUPROFEN 600 MG TAB PO SCH (13:30)
== END 2024-01-24 12:19 | disposition home or self-care (01) ==
LOC: OR 05:44
PROVIDERS: ATTEND Surgery
DX: K40.20 Bilateral inguinal hernia, without obstruction or gangrene, not specified as recurrent (principal); Z79.899 Other long term (current) drug therapy
CPT/HCPCS: 49650; S2900; 88304

== ENCOUNTER → 2024-02-17 | Outpatient (CLI) | payer MEDICARE ==
[2024-02-17 10:21] LABS: Basophils # (A) 0.03 X 10*3/uL (0.00-0.10); Basophils % (A) 0.7 %; Eosinophils # (A) 0.34 X 10*3/uL (0.04-0.35); Eosinophils % (A) 7.4 %; HCT 42.1 % (39.6-50.0); HGB 14.1 g/dL (13.0-17.0); Lymphocytes # (A) 1.12 X 10*3/uL (0.90-5.00); Lymphocytes % (A) 24.4 %; MCHC 33.5 g/dL (32.0-37.0); MCV 95.7 FL (80.0-97.0); Mean Platelet Volume 11.1 FL (9.5-12.2); Monocytes # (A) 0.48 X 10*3/uL (0.20-1.00); Monocytes % (A) 10.5 %; NRBC Per 100 WBC 0 X 10*3/uL (0.00-0.01); Neutrophils # (A) 2.61 X 10*3/uL (1.80-7.70); Neutrophils % (A) 56.8 %; Platelet Count 244 X 10*3/uL (140-440); RDW 13.1 % (11.5-14.5); WBC 4.59 X 10*3/uL (4.50-10.00)
[2024-02-17 10:44] LABS: ALT 12 U/L (10-49); AST 17 U/L (14-35); Albumin 3.9 g/dL (3.8-4.9); Alkaline Phosphatase 94 U/L (41-126); BUN/Creat Ratio 13.25 Ratio (12.00-20.00); Blood Urea Nitrogen 10.6 mg/dL (9.0-27.0); Calcium 9.4 mg/dL (8.7-10.3); Carbon Dioxide 26.1 mmol/L (21.6-31.8); Chloride 105 mmol/L (96-109); Chol/HDL Ratio 3.99 Ratio; Globulin 2.6 g/dL (1.6-3.3); Glucose 112 mg/dL (70-110); LDL Cholesterol,Calculated 142.2 mg/dL (0.0-131.0); Potassium 4.2 mmol/L (3.5-5.5); Prostate Specific Antigen 1.54 ng/mL (0.000-6.500); Sodium 140 mmol/L (135-145); Total Bilirubin 0.5 mg/dL (0.3-1.2); Total Protein 6.5 g/dL (6.2-8.2); VLDL Calculation 13.74 mg/dL (5.00-40.00)
== END | disposition home or self-care (01) ==
LOC: LABWHC1 07:33
PROVIDERS: ATTEND Internal Medicine Geriatric Medicine
CPT/HCPCS: 36415; 80053; 80061; 84153; 84443; 85025

== ENCOUNTER 2024-05-23 07:44 | Day surgery (SDC) | payer MEDICARE ==
[~2024-05-23 07:44] MED LIST: LACTATED RINGERS 1,000 ML IV SCH; LIDOCAINE 1% (10MG/ML) FOR IV START INTRADERMA PRN
[2024-05-23 08:06] VITALS: TEMP 97.8
[2024-05-23] MEDS: IV FLUID CONTINUATION 1,000 ML IV ONE (08:18)
[2024-05-23] MEDS: SODIUM CHLORIDE 0.9% 1,000 ML IV ONE (08:18)
[2024-05-23] MEDS ORDERED: PROPOFOL 10 MG/ML 20 ML VIAL IV ONE (08:40)
--- NOTE | 2024-05-23 08:44 | P.GSHP ---
History of Present Illness H&P Date: 05/23/24 Chief Complaint: Colon cancer screening 79-year-old male here for colonoscopy. He thinks his last colonoscopy was about 10 years ago. Unsure of those results. No bowel complaints. No family history of colon cancer. Past Medical History Past Medical History: Hearing Disorder / Deafness, Memory Impairment Additional Past Medical History / Comment(s): Mild memory Impairment, slight [place] History of Any Multi-Drug Resistant Organisms: None Reported Past Surgical History: Hernia Repair, Joint Replacement Additional Past Surgical History / Comment(s): Cataract surgery, colonoscopy, right total knee arthroplasty. Past Anesthesia/Blood Transfusion Reactions: No Reported Reaction Additional Past Anesthesia/Blood Transfusion Reaction / Comment(s): No hx of blood transfusion. Smoking Status: Never smoker - Past Family History Father Family Medical History: No Reported History Medications and Allergies Home Medications Medication Instructions Recorded Confirmed Type Barley Life 1 dose PO QAM 08/18/22 05/23/24 History Donepezil HCl [Aricept] 10 mg PO HS 01/19/24 05/23/24 History Allergies Allergy/AdvReac Type Severity Reaction Status Date / Time No Known Allergies Allergy Verified 05/23/24 08:08 Surgical - Exam Vital Signs Temp Pulse Resp BP Pulse Ox 97.8 F 94 18 140/67 97 05/23/24 08:00 05/23/24 08:00 05/23/24 08:00 05/23/24 08:00 05/23/24 08:00 Physical exam: General: Well-developed, well-nourished HEENT: Normocephalic, sclerae nonicteric Abdomen: Nontender, nondistended Extremities: No edema Neuro: Alert and oriented Assessment and Plan (1) Colon cancer screening Narrative/Plan: Will proceed with colonoscopy at this time. Current Visit: Yes Status: Acute Code(s): Z12.11 - ENCOUNTER FOR SCREENING FOR MALIGNANT NEOPLASM OF COLON SNOMED Code(s): 796994897
--- NOTE | 2024-05-23 08:59 | P.PCN ---
Date of Procedure: 05/23/24 Procedure(s) Performed: PREOPERATIVE DIAGNOSIS: Colon cancer screening POSTOPERATIVE DIAGNOSIS: Normal exam PROCEDURE: Colonoscopy ANESTHESIA: MAC SURGEON: Daryl Mccullough M.D. SPECIMENS: None ENDOSCOPIC PROCEDURE: The patient was placed on the endoscopy table in the left decubitus position. The Olympus colonoscope was inserted into the anus and passed under direct visualization to the base of the cecum. The appendiceal orifice was visualized. From that point the scope was slowly withdrawn inspecti ng all surfaces carefully. There were no neoplastic inflammatory or polypoid lesions throughout the cecum, ascending, transverse, descending, sigmoid and rectum. There was no visible diverticulosis noted. The patient's prep was slightly suboptimal limiting our visualization. Digital rectal examination was normal. The patient was taken to the recovery room in stable condition per anesthesia guidelines. RECOMMENDATIONS: Resume diet. Repeat colonoscopy for bowel symptoms.
[2024-05-23 09:34] VITALS: BP 130/68; PULSE 56; RESP 20
== END 2024-05-23 09:45 | disposition home or self-care (01) ==
LOC: ORWHC2ENDO 07:44
PROVIDERS: ATTEND Surgery
DX: Z12.11 Encounter for screening for malignant neoplasm of colon (principal); R41.3 Other amnesia; H91.90 Unspecified hearing loss, unspecified ear; Z79.899 Other long term (current) drug therapy
CPT/HCPCS: J2704; G0121

== ENCOUNTER → 2024-08-22 | Outpatient (CLI) | payer MEDICARE ==
[2024-08-22 15:03] LABS: Basophils # (A) 0.05 X 10*3/uL (0.00-0.10); Basophils % (A) 1.1 %; Eosinophils % (A) 6.8 %; HCT 44.8 % (39.6-50.0); HGB 14.3 g/dL (13.0-17.0); Lymphocytes # (A) 0.98 X 10*3/uL (0.90-5.00); Lymphocytes % (A) 22.1 %; MCH 30.8 pg (27.0-32.0); MCHC 31.9 g/dL (32.0-37.0); MCV 96.6 FL (80.0-97.0); Mean Platelet Volume 11.2 FL (9.5-12.2); Monocytes # (A) 0.45 X 10*3/uL (0.20-1.00); Monocytes % (A) 10.2 %; NRBC Per 100 WBC 0 X 10*3/uL (0.00-0.01); Neutrophils # (A) 2.64 X 10*3/uL (1.80-7.70); Neutrophils % (A) 59.6 %; Platelet Count 225 X 10*3/uL (140-440); RBC 4.64 X 10*6/uL (4.40-5.60); RDW 13.3 % (11.5-14.5); WBC 4.43 X 10*3/uL (4.50-10.00)
[2024-08-22 15:27] LABS: ALT 16 U/L (10-49); AST 23 U/L (14-35); Albumin 3.8 g/dL (3.8-4.9); Albumin/Globulin Ratio 1.52 Ratio (1.60-3.17); Alkaline Phosphatase 90 U/L (41-126); BUN/Creat Ratio 16.56 Ratio (12.00-20.00); Blood Urea Nitrogen 14.9 mg/dL (9.0-27.0); Calcium 9.4 mg/dL (8.7-10.3); Carbon Dioxide 26.5 mmol/L (21.6-31.8); Chloride 105 mmol/L (96-109); Chol/HDL Ratio 3.68 Ratio; Globulin 2.5 g/dL (1.6-3.3); Glucose 102 mg/dL (70-110); LDL Cholesterol,Calculated 125.3 mg/dL (0.0-131.0); Sodium 141 mmol/L (135-145); Total Bilirubin 0.6 mg/dL (0.3-1.2); Total Protein 6.3 g/dL (6.2-8.2); VLDL Calculation 15.34 mg/dL (5.00-40.00)
== END | disposition home or self-care (01) ==
LOC: LABWHC1 07:32
PROVIDERS: ATTEND Internal Medicine Geriatric Medicine
DX: Z00.00 Encounter for general adult medical examination without abnormal findings (principal); E78.2 Mixed hyperlipidemia; R73.9 Hyperglycemia, unspecified
CPT/HCPCS: 36415; 80053; 80061; 83036; 84443; 85025